=== PATIENT | male | born 1965 | race African-American/Black ===

== ENCOUNTER 2016-12-24 00:21 | Emergency (ER) | payer MEDICARE ==
[2016-12-24] MEDS ORDERED: IPRATROPIUM/ALBUTEROL 0.5-2.5 MG/3 ML AMPUL NEB ONE (00:33)
[2016-12-24] MEDS ORDERED: PREDNISONE 20 MG TABLET PO ONE (01:19)
[2016-12-24] MEDS ORDERED: DOXYCYCLINE HYCLATE 100 MG TABLET PO ONE (01:19)
--- NOTE | 2016-12-24 02:20 | ER Document Report ---
[id number] BREATHING Notes: The patient is a 51-year-old male, past medical history asthma, hypertension, sleep apnea with trach, presents with 1 hour of increased shortness of breath and cough. When EMS arrived, he was having trouble breathing and this resolved after his trach was suctioned. He was also given albuterol for wheezing. Patient has not taken his blood pressure medication in several months because he did not want to. He currently denies shortness of breath, fevers, increased drainage from his trach, chest pain, nausea, vomiting or leg swelling. TRAVEL OUTSIDE OF THE [place] IN LAST 30 DAYS: No - Related Data Allergies/Adverse Reactions: No Known Allergies Allergy (Verified 06/12/14 11:41) Past Medical History - General Information source: Patient, Emergency Med Personnel - Social History Smoking Status: Unknown if Ever Smoked Family History: Reviewed & Not Pertinent - Past Medical History Cardiac Medical History: Reports: Hx Congestive Heart Failure, Hx Hypercholesterolemia, Hx Hypertension Pulmonary Medical History: Reports: Hx Asthma Denies: Hx Tuberculosis Endocrine Medical History: Reports: Hx Diabetes Mellitus Type 2 - no medication - Immunizations Hx Diphtheria, Pertussis, Tetanus Vaccination: No - UNK Hx Pneumococcal Vaccination: 05/03/14 Review of Systems - Review of Systems Notes: REVIEW OF SYSTEMS: CONSTITUTIONAL: -fevers, -chills EENT: -eye pain, -difficulty swallowing, -nasal congestion CARDIOVASCULAR: -chest pain, -syncope. RESPIRATORY: +cough, +SOB GASTROINTESTINAL: -abdominal pain, -nausea, -vomiting, -diarrhea GENITOURINARY: -dysuria, -hematuria MUSCULOSKELETAL: -back pain, -neck pain SKIN: -rash or skin lesions. HEMATOLOGIC: -easy bruising or bleeding. LYMPHATIC: -swollen, enlarged glands. NEUROLOGICAL: -altered mental status or loss of consciousness, -headache, - neurologic symptoms PSYCHIATRIC: -anxiety, -depression. ALL OTHER SYSTEMS REVIEWED AND NEGATIVE. Physical Exam - Vital signs Vitals: BP 187/83 H 12/24/16 00:43 - Notes Notes: PHYSICAL EXAMINATION: GENERAL: Well-appearing, well-nourished and in no acute distress. HEAD: Atraumatic, normocephalic. EYES: Pupils equal round and reactive to light, extraocular movements intact, sclera anicteric, conjunctiva are normal. ENT: nares patent, oropharynx clear without exudates. Moist mucous membranes. NECK: Normal range of motion, supple without lymphadenopathy, Old trach with yellow drainage around trach collar LUNGS: Mild wheezing. No respiratory distress. HEART: Regular rate and rhythm without murmurs ABDOMEN: Soft, nontender, normoactive bowel sounds. No guarding, no rebound. No masses appreciated. EXTREMITIES: Normal range of motion, no pitting or edema. No cyanosis. NEUROLOGICAL: Cranial nerves grossly intact. Normal speech, normal gait. Normal sensory, motor, and reflex exams. PSYCH: Normal mood, normal affect. SKIN: Warm, Dry, normal turgor, no rashes or lesions noted. Course - Re-evaluation Re-evalutation: Patient presents with shortness of breath and wheezing that improved after suctioning of trach and DuoNeb. Patient in no respiratory distress. Trach changed. Will send home with steroids and follow-up at ENT. Will also restart his home amlodipine due to his hypertension. Patient already has enough albuterol at home. Given strict return precautions and he understands. - Vital Signs Vital signs: Temp Pulse Resp BP Pulse Ox 27 H 197/91 H 100 12/24/16 04:01 12/24/16 04:01 12/24/16 03:00 Discharge - Discharge Clinical Impression: Asthma exacerbation Pneumonia Qualifiers: Pneumonia type: due to unspecified organism Laterality: unspecified laterality Lung location: unspecified part of lung Qualified Code(s): J18.9 - Pneumonia, unspecified organism Hypertension Qualifiers: Hypertension type: unspecified secondary hypertension Qualified Code(s): I15.9 - Secondary hypertension, unspecified Condition: Good Disposition: HOME, SELF-CARE Additional Instructions: Your trach was changed today. Take the full course of antibiotics. PNEUMONIA: Your examination indicates that you have pneumonia. This is an infection of the lung tissue, usually caused by bacteria or a virus. Symptoms include cough, fever, shaking chills, chest pain, shortness of breath, and coughing up bloody sputum. Treatment for bacterial pneumonia includes rest, antibiotics for 10 to 14 days, increasing your clear liquid intake, a cool mist humidifier at your bedside, and fever medication. Often, a repeat chest X-ray is performed in a few weeks--even if you feel better--to ascertain whether the infection has completely resolved and no underlying lung problem is present. You should call the physician if you develop persistent vomiting, high fever that does not respond to fever medication, increasing shortness of breath , confusion, or lethargy. Also, failure to improve within two to three days is an indication for re-examination. ANTIBIOTIC THERAPY: You have been given an antibiotic prescription. It's important that you take all the medication, unless instructed otherwise by your physician. Failure to complete the entire course can result in relapse of your condition. Common side effects of antibiotics include nausea, intestinal cramping, or diarrhea. Women may develop vaginal yeast infections, and babies can get yeast (thrush) in the mouth following the use of antibiotics. Contact your physician if you develop significant side effects from this medication. Allergy to this antibiotic can result in hives, wheezing, faintness, or itching. If symptoms of allergy occur, stop the medication and call the doctor. DOXYCYCLINE: Doxycycline (Vibramycin, Doryx) is an antibiotic of the tetracycline family. This type of drug is useful for infections of the respiratory tract and genital tract, and is sometimes used for intestinal infections. Unlike most tetracyclines, doxycycline can be taken with food. It is longer acting, and (usually) less prone to side effects than regular tetracycline. Tetracycline antibiotics can stain immature teeth and SHOULD NOT BE TAKEN BY CHILDREN, NURSING MOTHERS, OR WOMEN. Tetracyclines can make you more prone to sunburn. Abdominal cramping, nausea, and diarrhea are occasional side effects. Women may experience vaginal yeast infections. Call the doctor at once if you develop hives, itching, shortness of breath , or lightheadedness. USE OF ACETAMINOPHEN (Tylenol): Acetaminophen may be taken for pain relief or fever control. It's much safer than aspirin, offering a wider range of "safe" dosages. It is safe during . Some brand names are Tylenol, Panadol, Datril, Anacin 3, Tempra, and Liquiprin. Acetaminophen can be repeated every four hours. The following are maximum recommended dosages: WEIGHT Dose Drops Elixir Chewable( 80mg) (LBS.) drprs=droppers tsp=teaspoon 6 40 mg 0.4 ml (1/2) 6-11 80 mg 0.8 ml (full) tsp 1 tab 12-16 120 mg 1 1/2 drprs 3/4 tsp 1 1/2 tabs 17-23 160 mg 2 drprs 1 tsp 2 tabs 24-30 240 mg 3 drprs 1 1/2 tsp 3 tabs 30-35 320 mg 2 tsp 4 tabs 36-41 360 mg 2 1/4 tsp 4 1/2 tabs 42-47 400 mg 2 1/2 tsp 5 tabs 48-53 480 mg 3 tsp 6 tabs 54-59 520 mg 3 1/4 tsp 6 1/2 tabs 60-64 560 mg 3 1/2 tsp 7 tabs 65-70 600 mg 3 3/4 tsp 7 1/2 tabs 71-76 640 mg 4 tsp 8 tabs 77-82 720 mg 4 1/2 tsp 9 tabs 83-88 800 mg 5 tsp 10 tabs >89 pounds or adults 650 mg to 900 mg Acetaminophen can be repeated every four hours. Maximum dose not to exceed 4000 mg a day. These maximum recommended dosages are slightly higher than the dosages written on the product container, but these dosages are very safe and below the toxic dosage for acetaminophen. FOLLOW-UP CARE: If you have been referred to a physician for follow-up care, call the physician s office for an appointment as you were instructed or within the next two days. If you experience worsening or a significant change in your symptoms, notify the physician immediately or return to the Emergency Department at any time for re-evaluation. ASTHMA: You have been diagnosed as having asthma. This is a condition where there is episodic tightness in the bronchial tubes. Allergies, infections, and polluted or cold air may be contributing factors. Emergency treatment of a severe asthma attack may include adrenaline shots , or bronchodilator aerosol. You may feel lightheaded, have a decreased exercise tolerance and a rapid pulse for an hour or two. Rest and get plenty of fluids. Home treatment of asthma requires bronchodilator drugs. These can be administered by injection, inhalation, or by mouth. Antibiotics and corticosteroids may be required for some patients. You should avoid chemical fumes, dusts, pollens, and exercising in very cold or dry air. If you smoke, stop!! If you develop a fever, increased wheezing, chest pain, or severe shortness of breath, you should contact the doctor immediately. STEROID MEDICATION: You have been given an injection of or oral medicine of the cortisone/ steroid class. This medication is used to control inflammation or allergy. Akash t is usually only given for a short period of time, until the acute process subsides. There are usually no side effects from short-term use of cortisone-like medications. Some persons feel an increased sense of well-being and are not sleepy at bedtime. Long-term use of cortisone medications is best avoided, unless required for a severe condition. If your condition does not remit, or relapses after the course of corticosteroid medication, you should consult your physician. INHALED BRONCHODILATORS: You have received treatment(s) of and/or prescription for an inhaled bronchodilator -- a medication which stimulates the airways in the lung to dilate. This improves the flow of air in asthma, bronchitis, and emphysema. These medicines have some similarity to adrenaline, and can cause similar side effects: shakiness, racing heart, and a sense of nervousness. These side effects decrease with time. Contact your doctor if these side effects are severe. Do not over-use the medicine. Too-frequent use of the inhaler may make it ineffective. Call your doctor if the inhaler is not controlling your symptoms at the prescribed doses. SMOKING: If you smoke, you should stop smoking. The tar and chemicals in cigarette smoke are harmful. Smoking has been shown to cause: emphysema chronic bronchitis lung cancer mouth and throat cancer stomach and pancreas cancer premature aging defects In addition, smoking increases ear and lung infections in children of smokers. FOLLOW-UP CARE: If you have been referred to a physician for follow-up care, call the physician s office for an appointment as you were instructed or within the next two days. If you experience worsening or a significant change in your symptoms, notify the physician immediately or return to the Emergency Department at any time for re-evaluation. Prescriptions: Amlodipine Besylate 5 mg PO DAILY #30 tab Doxycycline Hyclate 100 mg PO BID #14 capsule Prednisone [Deltasone 20 mg Tablet] 3 tab PO DAILY 5 Days
[2016-12-24 04:13] VITALS: BP 197/91
== END 2016-12-24 04:30 | disposition home or self-care (01) ==
LOC: ER 00:21
DX: J45.901 Unspecified asthma with (acute) exacerbation (principal); J18.9 Pneumonia, unspecified organism; R06.00 Dyspnea, unspecified; I11.0 Hypertensive heart disease with heart failure; I50.9 Heart failure, unspecified; Z93.0 Tracheostomy status
CPT/HCPCS: 94640; 99285; 71010; A9270 ×3; J7512; J7620

== ENCOUNTER 2016-12-25 13:02 | Observation (INO) | payer MEDICARE ==
--- NOTE | 2016-12-25 13:23 | ER Document Report ---
ED Medical Screen (RME) - General Chief Complaint: Breathing Difficulty Stated Complaint: DIFFICULTY BREATHING Mode of Arrival: Wheelchair Information source: Patient Notes: 51-year-old male presents to the emergency department sent by 3rd mate for trach replacement. Patient reports trach fell out last night. I have greeted and performed a rapid initial assessment of this patient. A comprehensive ED assessment and evaluation of the patient, analysis of test results and completion of the medical decision making process will be conducted by additional ED providers. TRAVEL OUTSIDE OF THE [place] IN LAST 30 DAYS: No - Related Data Allergies/Adverse Reactions: No Known Allergies Allergy (Verified 12/25/16 13:11) Past Medical History - Social History Chew tobacco use (# tins/day): No Frequency of alcohol use: None Drug Abuse: None - Past Medical History Cardiac Medical History: Reports: Hx Congestive Heart Failure, Hx Hypercholesterolemia, Hx Hypertension Pulmonary Medical History: Reports: Hx Asthma Denies: Hx Tuberculosis Endocrine Medical History: Reports: Hx Diabetes Mellitus Type 2 - no medication Renal/ Medical History: Denies: Hx Peritoneal Dialysis - Immunizations Hx Diphtheria, Pertussis, Tetanus Vaccination: No - UNK Physical Exam - Vital signs Vitals: Temp Pulse Resp BP Pulse Ox 98.1 F 79 24 H 227/103 H 96 12/25/16 13:11 12/25/16 13:11 12/25/16 13:11 12/25/16 13:11 12/25/16 13:11 Interpretation: Hypertensive - Reports was given prescription for antihypertensive this morning but has not taken his medication - General General appearance: Appears well, Alert In distress: None - Respiratory Respiratory status: No respiratory distress - Able to speak in full sentences Course - Vital Signs Vital signs: Temp Pulse Resp BP Pulse Ox 98.1 F 79 24 H 227/103 H 96 12/25/16 13:11 12/25/16 13:11 12/25/16 13:11 12/25/16 13:11 12/25/16 13:11
--- NOTE | 2016-12-25 15:08 | ER Document Report ---
[id number] DIFFICULTY BREATHING Mode of Arrival: Wheelchair Notes: The patient is a 51-year-old male, past medical history hypertension (does not take his meds), sleep apnea with trach since 1989, presents requesting a new trach after his trach fell out 16 hours ago when he placed his BiPap on. His trach is a size 8 and it was changed 2 nights ago by myself after he had heavy secretions from the trach. He denies cough, fevers, shortness of breath, nausea , vomiting or bloody secretions. TRAVEL OUTSIDE OF THE [place] IN LAST 30 DAYS: No - Related Data Allergies/Adverse Reactions: No Known Allergies Allergy (Verified 12/25/16 13:11) Past Medical History - General Information source: Patient - Social History Smoking Status: Never Smoker Chew tobacco use (# tins/day): No Frequency of alcohol use: None Drug Abuse: None Family History: Reviewed & Not Pertinent Patient has suicidal ideation: No Patient has homicidal ideation: No - Past Medical History Cardiac Medical History: Reports: Hx Congestive Heart Failure, Hx Hypercholesterolemia, Hx Hypertension Pulmonary Medical History: Reports: Hx Asthma Denies: Hx Tuberculosis Endocrine Medical History: Reports: Hx Diabetes Mellitus Type 2 - no medication Renal/ Medical History: Denies: Hx Peritoneal Dialysis - Immunizations Hx Diphtheria, Pertussis, Tetanus Vaccination: No - UNK Hx Pneumococcal Vaccination: 05/03/14 Review of Systems - Review of Systems Notes: REVIEW OF SYSTEMS: CONSTITUTIONAL: -fevers, -chills EENT: -eye pain, -difficulty swallowing, -nasal congestion CARDIOVASCULAR:-chest pain, -syncope. RESPIRATORY: -cough, -SOB GASTROINTESTINAL: -abdominal pain, - nausea, -vomiting, -diarrhea GENITOURINARY: -dysuria, -hematuria MUSCULOSKELETAL: -back pain, -neck pain SKIN: -rash or skin lesions. HEMATOLOGIC: -easy bruising or bleeding. LYMPHATIC: -swollen, enlarged glands. NEUROLOGICAL: -altered mental status or loss of consciousness, -headache, - neurologic symptoms PSYCHIATRIC: -anxiety, -depression. ALL OTHER SYSTEMS REVIEWED AND NEGATIVE. Physical Exam - Vital signs Vitals: Temp Pulse Resp BP Pulse Ox 98.1 F 79 24 H 227/103 H 96 12/25/16 13:11 12/25/16 13:11 12/25/16 13:11 12/25/16 13:11 12/25/16 13:11 - Notes Notes: PHYSICAL EXAMINATION: GENERAL: Well-appearing, well-nourished and in no acute distress. HEAD: Atraumatic, normocephalic. EYES: Pupils equal round and reactive to light, extraocular movements intact, sclera anicteric, conjunctiva are normal. ENT: nares patent, oropharynx clear without exudates. Moist mucous membranes. NECK: Patent tracheotomy without bleeding or heavy secretions. Normal range of motion, supple without lymphadenopathy LUNGS: Breath sounds clear to auscultation bilaterally and equal. No wheezes rales or rhonchi. HEART: Regular rate and rhythm without murmurs ABDOMEN: Soft, nontender, normoactive bowel sounds. No guarding, no rebound. No masses appreciated. EXTREMITIES: Normal range of motion, no pitting or edema. No cyanosis. NEUROLOGICAL: Cranial nerves grossly intact. Normal speech, normal gait. Normal sensory, motor, and reflex exams. PSYCH: Normal mood, normal affect. SKIN: Warm, Dry, normal turgor, no rashes or lesions noted. Course - Re-evaluation Re-evalutation: Attempted to place a size 8 uncuffed trach, but was unsuccessful. Attempted to place a size 6 uncuffed trach without success. Suspect stenosis or narrowing from trach being out of the stoma for 18 hours. Placed call to Dr. Faulkner at 15:05 to help with dilation of stoma. He is in surgery at this time. To help prevent it from further closing, placed inside part of size 8 trach. Patient in no respiratory distress at this time. 12/25/16 16:45. Dr. Faulkner in ED and is unable to place trach at bedside. Will admit patient to the OR for placement of trach under anesthesia. Requesting IV antihypertensive medications to help with elevated blood pressure. - Vital Signs Vital signs: Temp Pulse Resp BP Pulse Ox 98.1 F 75 20 170/70 H 100 12/25/16 18:36 12/25/16 19:06 12/25/16 19:06 12/25/16 19:06 12/25/16 19:06 - Laboratory Laboratory results interpreted by me: 12/25/16 17:35 POC Glucose 112 H Discharge - Discharge Clinical Impression: Tracheostomy complication Qualifiers: Tracheostomy complication: unspecified Qualified Code(s): J95.00 - Unspecified tracheostomy complication Hypertension Qualifiers: Hypertension type: unspecified secondary hypertension Qualified Code(s): I15.9 - Secondary hypertension, unspecified; I15 - Secondary hypertension Condition: Stable Disposition: SAME DAY SURGERY Admitting Provider: Surgicalmitali Faulkner
[2016-12-25] MEDS ORDERED: LABETALOL HCL INJ 20 MG/4 ML DISP.SYRIN IV ONE (16:55)
[2016-12-25] MEDS ORDERED: DEXMEDETOMIDINE INJ 80 MCG/20 ML VIAL IV ONE (17:41)
[2016-12-25] MEDS ORDERED: MIDAZOLAM 2 MG/2 ML INJ ONE (17:41)
[2016-12-25] MEDS ORDERED: PROPOFOL INJ 200 MG/20 ML VIAL IV ONE (17:41)
[2016-12-25] MEDS ORDERED: LIDOCAINE 2% JELLY 30 ML TUBE ONE (17:59)
[2016-12-25] MEDS ORDERED: LIDOCAINE 1%/EPINEPHRINE INJ 20 ML VIAL ONE (17:59)
[2016-12-25] MEDS ORDERED: DIPHENHYDRAMINE HCL 50 MG/ML VIAL IV PRN (18:49)
[2016-12-25] MEDS ORDERED: MORPHINE SULFATE 10 MG/ML INJ IV PRN (18:49)
[2016-12-25] MEDS ORDERED: OXYCODONE-ACETAMINOPHEN 5-325 MG TABLET PO PRN ×2 (18:49)
[2016-12-25] MEDS ORDERED: FENTANYL CITRATE INJ/PF 100 MCG/2 ML AMPUL IV PRN ×3 (18:49)
[2016-12-25] MEDS ORDERED: PROMETHAZINE HCL INJ 25 MG/1 ML VIAL IV PRN ×2 (18:49)
[2016-12-25] MEDS ORDERED: MEPERIDINE HCL/PF INJ 25 MG/1 ML DISP.SYRIN IV PRN (18:49)
--- NOTE | 2016-12-25 18:58 | OPERATIVE REPORT E ---
Operative Report NAME: NUNO JAMES : 1965 AGE: 51Y DATE OF SURGERY: 12/25/2016 ROOM: ED08 PREOPERATIVE DIAGNOSIS: DISPLACED PERMANENT TRACHEOSTOMY TUBE. POSTOPERATIVE DIAGNOSIS: DISPLACED PERMANENT TRACHEOSTOMY TUBE. OPERATION: 1. Flexible bronchoscopy. 2. Replacement of tracheostomy tube with 8, cuffless fenestrated trach tube. SURGEON: SREE MARINO M.D. ANESTHESIA: LMAC. COMPLICATIONS: None. ESTIMATED BLOOD LOSS: None. DRAINS: None. TISSUE REMOVED OR ALTERED: None. COMPLICATIONS: None. PROCEDURE: The patient was brought from the emergency department down to the holding area and then to the operating room, where IV LMAC anesthesia was induced. Surgical plan and surgical time-out were conducted. The patient was placed in a semirecumbent position and head extended at the cervical level. Flexible endoscopy was performed through the existing inner cannula from an 8 inner diameter Shiley tracheostomy tube. This revealed the trachea to be in good shape and the tom was visualized and this was normal. We did back out the inner cannula so that I could visualize the permanent stoma and it appeared to be without evidence of malignancy or hypertrophic granulation tissue. I then removed the inner cannula and inserted a 6 Shiley tracheostomy tube with the obturator. We left this in position for several minutes after removing the obturator. The patient maintained good saturations. The #6 tracheostomy tube was removed and we exchanged that one with an 8 inner diameter fenestrated, noncuffed tube. This did require a fair amount of force to overcome resistance at the mid level of the permanent trach canal. However, once it gave into position, we were able to ventilate the patient fine. There was no bleeding and the inner cannula was then provided into position. A humidified ventilated mask was attached to the tracheostomy site. The patient tolerated the procedure well, taken to the recovery room in stable condition. DICTATING PHYSICIAN: SREE MARINO M.D. [id number] PHY#: [id number] ID: [id number] JOB#: [id number] ACCT: [id number] cc:SREE MARINO M.D. >
[2016-12-25] MEDS ORDERED: DEXTROSE 50%-WATER 25 GM/50 ML DISP.SYRIN IV PRN ×2 (21:36)
[2016-12-25] MEDS ORDERED: GLUCAGON,HUMAN RECOMB 1 MG INJ IM PRN (21:36)
[2016-12-25] MEDS ORDERED: DEXTROSE 40% GEL 15 GM TUBE PO PRN ×2 (21:36)
[2016-12-25] MEDS ORDERED: INSULIN REG, HUMAN 100 UNIT/ML 3 ML VIAL (PYX) SUBCUT PRN (21:36)
--- NOTE | 2016-12-25 22:08 | HISTORY AND PHYSICAL E ---
History and Physical NAME: NUNO JAMES : 1965 AGE: 51Y ADMITTED: 12/25/2016 ROOM: 528 CHIEF COMPLAINT: Dislodged tracheostomy. HISTORY OF PRESENT ILLNESS: The patient is a 51-year-old -Greek male with a history of morbid obesity. He is brought by ground rescue to [facility] Emergency Department because his #8 Shiley tracheostomy tube, uncuffed, fenestrated, became dislodged. This was approximately 12 hours ago. The patient spent the better part of the day in the emergency department undergoing multiple times at tracheostomy tube reinsertion. Unfortunately, these efforts were unsuccessful including efforts by Dr. Faulkner at bedside. Therefore, the patient is admitted for observation to be taken to the operating room for operative insertion of tracheostomy tube under controlled circumstances. PAST MEDICAL/SURGICAL HISTORY: Can be found in his permanent record. This includes: 1. Hypertension. 2. Morbid obesity. 3. Sleep apnea. 4. History of hypertension. 5. Congestive heart failure. 6. Asthma. 7. Type II diabetes. PAST SURGICAL HISTORY: Permanent tracheostomy for morbid obesity. LOCAL MEDICAL DOCTOR: Not reported. IMMUNIZATIONS: Unknown. REVIEW OF SYSTEMS: GASTROINTESTINAL: Patient denies gastrointestinal problems. RESPIRATORY: chronic ronchi. PHYSICAL EXAMINATION: GENERAL: The patient's examined in the emergency department, room 9. Patient is in mild distress. He follows commands. VITAL SIGNS: Stable. PSYCHIATRIC: Alert and oriented x4. NEUROLOGIC: Grossly intact in the upper and lower extremities, although gait was not assessed. EYES: Without icterus. NECK: No adenopathy. There is a permanent tracheostomy site without bleeding; there are some secretions. No evidence of cellulitis or stenosis. LUNGS: Rhonchi bilaterally. ABDOMEN: Soft. The remainder of the examination is unremarkable. LABORATORY PROFILE: Blood sugar 112. IMPRESSION: 1. DISLODGED TRACHEOSTOMY TUBE. 2. HISTORY OF MORBID OBESITY. 3. HYPERTENSION. RECOMMENDATIONS: The patient will be brought into the hospital, taken to the operating room under controlled conditions with sedation, to undergo flexible bronchoscopy, with subsequent tracheostomy replacement. Patient agrees to proceed. DICTATING PHYSICIAN: RSEE FAULKNER M.D. [id number] PHY#: [id number] ID: [id number] JOB#: [id number] ACCT: [id number] cc:Sameer BARNARD MD
[2016-12-25] MEDS: CLONIDINE HCL 0.2 MG TABLET PO SCH (22:43)
[2016-12-26] MEDS ORDERED: INFLUENZA ADLT QUAD (36MOS+) 2016-17 VAC 0.5 ML SYR IM PRN (01:48)
--- NOTE | 2016-12-26 08:28 | DISCHARGE SUMMARY E ---
Discharge Summary NAME: NUNO JAMES : 1965 AGE: 51Y ADMITTED: 12/25/2016 DISCHARGED: 12/26/2016 FINAL DIAGNOSIS: ADMISSION DIAGNOSES: 1. History of chronic obstructive pulmonary disease. 2. History of respiratory failure. HOSPITAL COURSE: A 51-year-old who has a chronic tracheostomy, and he had a problem with the tracheostomy tube. The plug needed to be changed. He came with respiratory distress to hospital, admitted by Dr. Faulkner, and then in the operating room underwent change of tracheostomy tube under monitoring. Today he is feeling better, comfortable. PEG tube is working well, in place, and is hemodynamically stable with good oxygenation with saturation more than 92% to 94%. We will be discharging him and he will follow up with primary care and surgical service as needed. DICTATING PHYSICIAN: VIET SMITH M.D. [id number] PHY#: [id number] ID: [id number] JOB#: [id number] ACCT: [id number] cc:Devyn HUMPHREY SANKAR M.D. >
[2016-12-26 08:41] VITALS: BP 153/83
[2016-12-26] MEDS: CLONIDINE HCL 0.2 MG TABLET PO SCH (10:25)
== END 2016-12-26 12:00 | disposition home health service (06) ==
LOC: ER 13:02 → EH 17:41 → UNDOADMOB 17:41 → EH 18:42 → 5 20:36
PROC: 3E033GC Introduction of Other Therapeutic Substance into Peripheral Vein, Percutaneous Approach (ICD-10-PCS; 2016-12-25)
PROC: 0BJ08ZZ Inspection of Tracheobronchial Tree, Via Natural or Artificial Opening Endoscopic (ICD-10-PCS; 2016-12-25)
PROC: 3E0234Z Introduction of Serum, Toxoid and Vaccine into Muscle, Percutaneous Approach (ICD-10-PCS; 2016-12-25)
PROC: 0B21XFZ Change Tracheostomy Device in Trachea, External Approach (ICD-10-PCS; principal; 2016-12-25 18:00)
DX: J95.03 Malfunction of tracheostomy stoma (principal); R06.00 Dyspnea, unspecified; J44.9 Chronic obstructive pulmonary disease, unspecified; E66.01 Morbid (severe) obesity due to excess calories; I11.0 Hypertensive heart disease with heart failure; I50.9 Heart failure, unspecified; G47.30 Sleep apnea, unspecified; J45.909 Unspecified asthma, uncomplicated; E11.9 Type 2 diabetes mellitus without complications; Z23 Encounter for immunization
CPT/HCPCS: 99285; 96374; 82962 ×2; 90686; 31502; 31622; 90471; G0378 ×3; J2250; A9270 ×2; J3490 ×2; J2704; 320

== ENCOUNTER 2016-12-28 18:57 | Emergency (ER) | payer MEDICARE ==
[2016-12-28] MEDS ORDERED: ALBUTEROL SULFATE 0.083% NEB 2.5 MG/3 ML AMPUL NEB ONE ×2 (19:16→23:14)
[2016-12-28] MEDS ORDERED: METHYLPREDNISOLONE INJ 125 MG/2 ML SDV IV ONE (19:16)
[2016-12-28] MEDS ORDERED: IPRATROPIUM/ALBUTEROL 0.5-2.5 MG/3 ML AMPUL NEB ONE (19:16)
--- NOTE | 2016-12-28 19:21 | ER Document Report ---
ED Respiratory Problem - General Stated Complaint: DIFFICULTY BREATHING Time seen by provider: 19:17 Mode of Arrival: Stretcher Information source: Patient - HPI Patient complains to provider of: Cough, Short of breath Onset: This morning Duration: Continuous, Worse/persistent Quality of pain: No pain Short of Breath: Moderate Chest pain/discomfort: Tightness Cough: Productive Sputum amount: Small Sputum color: Yellow Sputum consistency: Mucoid Associated symptoms: Congestion, Cough, Difficulty breathing, Short of breath Similar symptoms previously: Yes Recently seen / treated by doctor: No Notes: Patient is a 51-year-old person who presents to the emergency room via EMS for difficulty breathing, he was also noted to have an elevated blood pressure of 220 systolic when EMS arrived, he reports a cough productive of yellowish phlegm , he reports a subjective fever, denies any chest pain, patient has a tracheostomy tube in place, states it's been there since 1994 and is related to obstructive sleep apnea, he does not use oxygen at home at present time - Related Data Allergies/Adverse Reactions: No Known Allergies Allergy (Unverified 12/28/16 23:59) Home Medications: Current Home Medications Amlodipine Besylate 5 mg PO DAILY 12/29/16 [History] Doxycycline Hyclate 100 mg PO BID 12/29/16 [History] Prednisone 60 mg PO DAILY 12/29/16 [History] Past Medical History - General Information source: Patient - Social History Smoking Status: Unknown if Ever Smoked Family History: Reviewed & Not Pertinent Review of Systems - Review of Systems Constitutional: No symptoms reported EENT: No symptoms reported Cardiovascular: No symptoms reported Respiratory: See HPI Gastrointestinal: No symptoms reported Genitourinary: No symptoms reported Male Genitourinary: No symptoms reported Musculoskeletal: No symptoms reported Skin: No symptoms reported Hematologic/Lymphatic: No symptoms reported Neurological/Psychological: No symptoms reported -: Yes All other systems reviewed and negative Physical Exam - Vital signs Vitals: Temp Pulse Resp BP Pulse Ox 98.2 F 78 21 209/97 94 12/28/16 19:02 12/28/16 19:02 12/28/16 19:02 12/28/16 19:02 12/28/16 19:02 Interpretation: Normal - General General appearance: Appears well, Alert - HEENT Head: Normocephalic, Atraumatic Eyes: Normal Conjunctiva: Normal Extraocular movements intact: Yes Eyelashes: Normal Pupils: PERRL Neck: Other - Tracheostomy tube in place, small amount of yellowish colored phlegm coming to - Respiratory Respiratory status: No respiratory distress Chest status: Nontender Breath sounds: Productive cough, Rhonchi, Wheezing Chest palpation: Normal - Cardiovascular Rhythm: Regular Heart sounds: Normal auscultation Murmur: No - Abdominal Inspection: Normal Distension: No distension Bowel sounds: Normal Tenderness: Nontender Organomegaly: No organomegaly - Back Back: Normal, Nontender - Extremities General upper extremity: Normal inspection, Nontender, Normal color, Normal ROM , Normal temperature General lower extremity: Nontender, Normal color, Normal temperature. No: Lorena 's sign Foot: Edema, Other - Chronic appearing discoloration consistent with peripheral vascular disease - Neurological Neuro grossly intact: Yes Cognition: Normal Orientation: AAOx4 Culver Coma Scale Eye Opening: Spontaneous Culver Coma Scale Verbal: Oriented Culver Coma Scale Motor: Obeys Commands Culver Coma Scale Total: 15 Speech: Normal Motor strength normal: LUE, RUE, LLE, RLE Sensory: Normal - Psychological Associated symptoms: Normal affect, Normal mood - Skin Skin Temperature: Warm Skin Moisture: Dry Skin Color: Normal Course - Re-evaluation Re-evalutation: 12/29/16 01:19 Requested dissolver operator to [facility] optometry assistant, Dr. Montero 12/29/16 03:35 Nursing supervisor framing mill reports there are no admitted bed to perform dialysis and, I do not currently have a optometry assistant on-call, however it has been at least 3 years since he has seen this optometry assistant, therefore I will attempt to make arrangements to transfer patient to a tertiary care center 12/29/16 03:51 Patient was discussed with hospitalist at [facility], Dr. Montano, who accepts patient for transfer, unfortunately there are no available beds at the present time so he will be placed on a wait list 12/29/16 03:56 A call was placed to [facility], patient transfer center, discussed with Aide, requested callback for possible transfer 12/29/16 04:49 Patient was discussed with Dr. Thompson, hospitalist at [facility] who accepts patient for transfer, transfer center reports that there should be open bed in the ICU at this point in time, awaiting callback with bed assignment 02/27/17 05:32 Patient has been given a bed assignment at [facility], awaiting transportation arrangements at this point in time, patient's blood pressure has decreased slightly since being started on a Cardene drip, his vital signs are otherwise stable, he is awake, alert and oriented, in no acute distress at this point in time, stable for transport once available - Vital Signs Vital signs: Temp Pulse Resp BP Pulse Ox 98.2 F 78 26 H 183/91 H 100 12/28/16 19:02 12/28/16 19:02 12/29/16 05:02 12/29/16 05:22 12/29/16 04:01 - Laboratory Result Diagrams: 12/28/16 23:26 12/28/16 23:26 Laboratory results interpreted by me: 12/28/16 12/28/16 12/28/16 23:26 23:26 23:26 RBC 2.94 L Hgb 7.9 L Hct 24.7 L MCH 26.7 L MCHC 31.9 L RDW 15.9 H Seg Neutrophils % 89.7 H Lymphocytes % 6.2 L VBG pH VBG pCO2 VBG HCO3 Potassium 6.1 H* Chloride 109 H Carbon Dioxide 14 L BUN 87 H Creatinine 11.63 H Est GFR ( Amer) 6 L Est GFR (Non-Af Amer) 5 L Glucose 121 H Calcium 6.9 L* AST 9 L ALT 19 L Creatine Kinase 374 H NT-Pro-B Natriuret Pep 8160 H Albumin 3.4 L Crossmatch 12/28/16 12/29/16 23:26 01:37 RBC Hgb Hct MCH MCHC RDW Seg Neutrophils % Lymphocytes % VBG pH 7.22 L VBG pCO2 32.8 L VBG HCO3 13.2 L Potassium Chloride Carbon Dioxide BUN Creatinine Est GFR ( Amer) Est GFR (Non-Af Amer) Glucose Calcium AST ALT Creatine Kinase NT-Pro-B Natriuret Pep Albumin Crossmatch See Detail - Diagnostic Test Radiology reviewed: Image reviewed, Reports reviewed - EKG Interpretation by Me EKG shows normal: Sinus rhythm Rate: Normal Rhythm: NSR Heart block present: 1st Degree Procedures - Additional Procedures IV insertion Time performed: 21:45 Additional Procedures: IV insertion Notes: 12/28/16 21:45 20-gauge IV catheter placed in right antecubital space using ultrasound guidance 12/29/16 01:37 20-gauge IV catheter placed in the left antecubital space using ultrasound guidance Critical Care Note - Critical Care Note Total time excluding time spent on procedures (mins): 60 Comments: Patient with hyperkalemia, acute renal failure, requiring transfer to tertiary [facility] center for emergent dialysis, time spent caring for patient, discussing with consultants and tertiary care centers arranging for transfer Discharge - Discharge Clinical Impression: Hyperkalemia Anemia Qualifiers: Anemia type: unspecified type Qualified Code(s): D64.9 - Anemia, unspecified Chronic kidney disease Qualifiers: Chronic kidney disease stage: unspecified stage Qualified Code(s): N18.9 - Chronic kidney disease, unspecified Hypertension Qualifiers: Hypertension type: essential hypertension Qualified Code(s): I10 - Essential ( primary) hypertension Condition: Serious Disposition: [facility]
[2016-12-28] MEDS ORDERED: PREDNISONE 20 MG TABLET PO ONE (21:06)
[2016-12-28 23:43] LABS: VENOUS BLOOD BASE EXCESS -13.4 mmol/L; VENOUS BLOOD HCO3 13.2 mmol/L (20-32); VENOUS BLOOD PCO2 32.8 mmHg (35-63); VENOUS BLOOD PH 7.22 (7.30-7.42)
[2016-12-28 23:45] LABS: ABSOLUTE LYMPHOCYTES (AUTO) 0.6 10^3/uL (0.5-4.7); ABSOLUTE MONOCYTES (AUTO) 0.3 10^3/uL (0.1-1.4); ABSOLUTE NEUT (AUTO) 8.1 10^3/uL (1.7-8.2); BASOPHILS % (AUTO) 0.2 % (0-2); HEMATOCRIT 24.7 % (37.9-51.0); LYMPHOCYTES % (AUTO) 6.2 % (13-45); MEAN CORPUSCULAR HEMOGLOBIN 26.7 pg (27.0-33.4); MEAN CORPUSCULAR HGB CONC 31.9 g/dL (32.0-36.0); MEAN CORPUSCULAR VOLUME 84 fl (80-97); MONOCYTES % (AUTO) 3.9 % (3-13); RED BLOOD COUNT 2.94 10^6/uL (4.35-5.55); RED CELL DISTRIBUTION WIDTH 15.9 % (11.5-14.0); SEGMENTED NEUTROPHILS % (AUTO) 89.7 % (42-78)
[2016-12-28 23:48] LABS: HEMOGLOBIN 7.9 g/dL (13.5-17.0)
[2016-12-29 00:09] LABS: CREATINE KINASE MB 3.66 ng/mL (<4.55)
[2016-12-29] MEDS ORDERED: NORMAL SALINE 250 ML IV PRN (00:10)
[2016-12-29] MEDS ORDERED: CEFTRIAXONE INJ 1000 MG VIAL IV ONE (00:12)
[2016-12-29 00:15] LABS: ALANINE AMINOTRANSFERASE 19 U/L (21-72); ALBUMIN 3.4 g/dL (3.5-5.0); ALKALINE PHOSPHATASE 63 U/L (38-126); ANION GAP 15 (5-19); ASPARTATE AMINO TRANSFERASE 9 U/L (17-59); BILIRUBIN,TOTAL 0.5 mg/dL (0.2-1.3); BLOOD UREA NITROGEN 87 mg/dL (7-20); CARBON DIOXIDE 14 mmol/L (22-30); CHLORIDE 109 mmol/L (98-107); CREATINE KINASE 374 U/L (55-170); CREATININE RESULT 11.63 mg/dL (0.52-1.25); GLUCOSE 121 mg/dL (75-110); SODIUM 138.3 mmol/L (137-145); TOTAL PROTEIN 6.3 g/dL (6.3-8.2)
[2016-12-29 00:26] LABS: CALCIUM 6.9 mg/dL (8.4-10.2); POTASSIUM 6.1 mmol/L (3.6-5.0)
[2016-12-29 00:27] LABS: TROPONIN I 0.197 ng/mL
[2016-12-29] MEDS ORDERED: SODIUM POLYSTYRENE SULFONATE 15 GM/60 ML PO ONE (00:29)
[2016-12-29] MEDS ORDERED: CALCIUM GLUCONATE 1000 MG/10 ML INJ IV ONE ×2 (00:29→01:49)
[2016-12-29] MEDS ORDERED: DEXTROSE 50%-WATER 25 GM/50 ML DISP.SYRIN IV ONE (00:29)
[2016-12-29] MEDS ORDERED: INSULIN REG, HUMAN 100 UNIT/ML 3 ML VIAL (PYX) IV ONE (00:29)
[2016-12-29] MEDS ORDERED: NORMAL SALINE 1000 ML 1,000 ML IV PRN (01:48)
[2016-12-29] MEDS ORDERED: ALBUTEROL SULFATE 0.083% NEB 2.5 MG/3 ML AMPUL NEB ONE (02:15)
[2016-12-29] MEDS ORDERED: CLONIDINE HCL 0.2 MG TABLET PO ONE ×2 (02:54→07:53)
[2016-12-29] MEDS ORDERED: NICARDIPINE 20 MG/200 ML PREMIX BAG IV ONE (04:00)
[2016-12-29] MEDS ORDERED: DEXTROSE 5%-WATER 1000 ML 1,000 ML with SODIUM BICARBONATE 100 MEQ IV PRN ×2 (04:52)
[2016-12-29] MEDS ORDERED: SODIUM BICARBONATE 8.4% INJ 50 MEQ/50 ML DISP.SYRIN ONE (05:09)
[2016-12-29] MEDS ORDERED: NITROGLYCERIN 2% OINTMENT 1 GM PACKET TP ONE (07:53)
--- NOTE | 2016-12-29 08:09 | EKG REPORT ---
SEVERITY:- ABNORMAL ECG - SINUS RHYTHM LVH WITH SECONDARY REPOLARIZATION ABNORMALITY BORDERLINE PROLONGED QT INTERVAL : Confirmed by: Ronald Perez MD 29-Dec-2016 08:07:53
--- NOTE | 2016-12-29 08:09 | EKG REPORT ---
SEVERITY:- ABNORMAL ECG - SINUS RHYTHM FIRST DEGREE AV BLOCK BORDERLINE LEFT AXIS DEVIATION ABNORMAL T, CONSIDER ISCHEMIA, LATERAL LEADS BORDERLINE PROLONGED QT INTERVAL : Confirmed by: Ronald Perez MD 29-Dec-2016 08:08:33
[2016-12-29] MEDS ORDERED: NICARDIPINE HCL RTU, ISO-OS 20 MG/200 ML RTUINJ IV ONE (08:11)
[2016-12-29 08:30] VITALS: BP 185/92
== END 2016-12-29 08:30 | disposition short-term general hospital (02) ==
LOC: ER 18:57 → MERGE 18:57 → EH 12-29 00:16 → UNDOADMIN 12-29 00:16 → ER 12-29 08:30
DX: I12.9 Hypertensive chronic kidney disease with stage 1 through stage 4 chronic kidney disease, or unspecified chronic kidney disease (principal); N18.9 Chronic kidney disease, unspecified; E87.5 Hyperkalemia; D64.9 Anemia, unspecified; R06.02 Shortness of breath; R05 Cough; R50.9 Fever, unspecified; Z79.899 Other long term (current) drug therapy
CPT/HCPCS: 93005 ×2; 94640 ×2; 99291; 96374; 86900; 86901; 36415; 87040; 82553; 86850; 82550; 85025; 80053; 84484; 86920; 82803; 83880; 71010; 93010 ×2; J0610; A9270 ×6; J3490 ×2; J0696; J1815; J2930; J7512; J7620

== ENCOUNTER → 2017-03-19 | Outpatient (CLI) | payer MEDICARE, OTHER | LOC: SD 08:02 | PROVIDERS: ATTEND Internal Medicine Nephrology | DX: I95.9 Hypotension, unspecified (principal) | CPT/HCPCS: 82533 ==

== ENCOUNTER 2017-06-02 14:55 | Day surgery (SDC) | payer MEDICARE ==
[2017-06-02] MEDS ORDERED: NALOXONE HCL INJ/PF 0.4 MG/1 ML SDV ONE (15:52)
[2017-06-02] MEDS ORDERED: FLUMAZENIL INJ 0.5 MG/5 ML VIAL IV ONE (15:53)
[2017-06-02] MEDS ORDERED: GLUCAGON,HUMAN RECOMB 1 MG INJ ONE (15:53)
[2017-06-02] MEDS ORDERED: FENTANYL CITRATE INJ/PF 100 MCG/2 ML AMPUL ONE (15:53)
[2017-06-02] MEDS ORDERED: EPINEPHRINE INJ 1 MG/10 ML DISP.SYRIN ONE (15:53)
[2017-06-02] MEDS: MIDAZOLAM 2 MG/2 ML INJ ONE ×2 (16:10→16:15)
--- NOTE | 2017-06-02 16:39 | Operative Report ---
Operative Report DATE OF SURGERY: 06/02/17 Operative Report: Pre-op diagnosis: Colon cancer screening Post-op diagnosis: 1. Pancolonic diverticulosis 2. polyps in the transverse colon Surgery: Colonoscopy with polypectomy Medications: Versed 3mg, Fentanyl 100mcg IV push Tissue removed: Colon polyps Procedure: After informed consent obtained from patient, conscious sedation was achieved. A digital rectal examination was performed and this was unremarkable. The colonoscope was inserted into the rectum and advanced to the cecum. The appendiceal orifice and the terminal ileum were both identified. The mucosa was examined into details as the colonoscope was slowly pulled out of the patient. The endoscope was retroflexed in the rectum. Patient tolerated the procedure well. Findings Terminal ileum: Normal Cecum: Normal Ascending colon: A few diverticuli Transverse colon: A few diverticuli. Three 5-6mm polyps removed with a hot polypectomy snare Descending colon: A few diverticuli Sigmoid colon: Multiple diverticuli Rectum: Normal except for internal hemorrhoids Plan: Await pathology. Follow-up colonoscopy in 5 years OPERATION: .
[2017-06-02 17:21] VITALS: BP 102/68
--- NOTE | 2017-06-02 18:36 | PDOC DISCHARGE SUMMARY ---
Discharge Summary (SDC) - Discharge Final Diagnosis: Colon polyps and diverticulosis Date of Surgery: 06/02/17 Condition: Stable Forms: Sedation D/C Instructions, Discharge POC-Surgical Service Treatment or Instructions: None Referrals: JANICE BAY MD [ACTIVE STAFF] - Discharge Activity: Activity As Tolerated, Balance Activity w/Rest, No Driving Home Care Assistance: Provided by Family Report the Following to Your Physician Immediately: Shortness of Breath, Increase in Pain, Fever over 101 Degrees, Unusual Bleeding
== END 2017-06-02 17:30 | disposition home or self-care (01) ==
LOC: END 14:55
PROVIDERS: ATTEND Internal Medicine Gastroenterology
PROC: 0DBL8ZX Excision of Transverse Colon, Via Natural or Artificial Opening Endoscopic, Diagnostic (ICD-10-PCS; principal; 2017-06-02 15:30)
DX: Z12.11 Encounter for screening for malignant neoplasm of colon (principal); K57.30 Diverticulosis of large intestine without perforation or abscess without bleeding; D12.3 Benign neoplasm of transverse colon; K64.8 Other hemorrhoids; Z93.0 Tracheostomy status; E66.01 Morbid (severe) obesity due to excess calories; I12.0 Hypertensive chronic kidney disease with stage 5 chronic kidney disease or end stage renal disease; E11.22 Type 2 diabetes mellitus with diabetic chronic kidney disease; N18.6 End stage renal disease; D64.9 Anemia, unspecified; G47.33 Obstructive sleep apnea (adult) (pediatric); Z79.899 Other long term (current) drug therapy; Z68.42 Body mass index [BMI] 45.0-49.9, adult
CPT/HCPCS: 45385; 82962; 88305 ×2; J2250; J0171; J3010; J1610; J2310; J3490

== ENCOUNTER 2019-10-27 07:57 | Emergency (ER) | payer MEDICARE, MEDICAID ==
--- NOTE | 2019-10-27 09:10 | RADIOLOGY REPORT (SQ) ---
EXAM DESCRIPTION: KNEE LEFT 4 VIEW COMPLETED DATE/TIME: 10/27/2019 8:59 am REASON FOR STUDY: unable to bear weight, tender to palpation COMPARISON: None. NUMBER OF VIEWS: Four views. TECHNIQUE: AP, lateral, and both oblique radiographic images acquired of the left knee. LIMITATIONS: None. FINDINGS: MINERALIZATION: Normal. BONES: No acute fracture or dislocation. No worrisome bone lesions. JOINT: Small joint effusion. SOFT TISSUES: 8 mm metallic density overlies anterior proximal tibia. Vascular calcifications. OTHER: No other significant finding. IMPRESSION: 1. 8 mm metallic density overlies anterior proximal tibia compatible foreign body. Rec ommend correlation with patient history. 2. Small joint effusion without other evidence of acute bony abnormality of the left knee. TECHNICAL DOCUMENTATION: JOB ID: [id number] [employer]- All Rights Reserved Reading location - IP/workstation name: [email or web address]
[2019-10-27 12:35] LABS: ABSOLUTE EOSINOPHILS # (AUTO) 0.1 10^3/uL (0.0-0.6); ABSOLUTE LYMPHOCYTES (AUTO) 1.4 10^3/uL (0.5-4.7); ABSOLUTE MONOCYTES (AUTO) 0.3 10^3/uL (0.1-1.4); ABSOLUTE NEUT (AUTO) 2.7 10^3/uL (1.7-8.2); BASOPHILS % (AUTO) 0.8 % (0-2); EOSINOPHILS % (AUTO) 1.8 % (0-6); HEMATOCRIT 37.1 % (37.9-51.0); HEMOGLOBIN 11.3 g/dL (13.5-17.0); LYMPHOCYTES % (AUTO) 31.3 % (13-45); MEAN CORPUSCULAR HEMOGLOBIN 28.7 pg (27.0-33.4); MEAN CORPUSCULAR HGB CONC 30.4 g/dL (32.0-36.0); MEAN CORPUSCULAR VOLUME 95 fl (80-97); MONOCYTES % (AUTO) 6.1 % (3-13); PLATELET COUNT 163 10^3/uL (150-450); RED BLOOD COUNT 3.92 10^6/uL (4.35-5.55); RED CELL DISTRIBUTION WIDTH 15.7 % (11.5-14.0); TOTAL CELLS COUNTED % (AUTO) 100 %; WHITE BLOOD COUNT 4.5 10^3/uL (4.0-10.5)
[2019-10-27 12:56] LABS: ALBUMIN 3.8 g/dL (3.5-5.0); ALKALINE PHOSPHATASE 97 U/L (38-126); ANION GAP 15 (5-19); ASPARTATE AMINO TRANSFERASE 14 U/L (17-59); BILIRUBIN,DIRECT 0.3 mg/dL (0.0-0.4); BILIRUBIN,TOTAL 0.7 mg/dL (0.2-1.3); BLOOD UREA NITROGEN 45 mg/dL (7-20); CALCIUM 8.1 mg/dL (8.4-10.2); CARBON DIOXIDE 22 mmol/L (22-30); CHLORIDE 104 mmol/L (98-107); CREATINE KINASE 53 U/L (55-170); GLUCOSE 77 mg/dL (75-110); POTASSIUM 5.3 mmol/L (3.6-5.0); TOTAL PROTEIN 6.8 g/dL (6.3-8.2); URIC ACID 6.6 mg/dL (3.5-8.5)
[2019-10-27 13:06] LABS: TROPONIN I 0.014 ng/mL
--- NOTE | 2019-10-27 13:59 | ER Document Report ---
Entered by VALE SUAZO SCRIBE 10/27/19 1104 Acting as scribe for:DAVEY CESAR MD ED Extremity Problem, Lower - General Chief Complaint: Knee Pain Stated Complaint: FALL/KNEE PAIN Time Seen by Provider: 10/27/19 11:02 Primary Care Provider: [facility] [Provider Group] - Follow up as needed JOSE BARAJAS MD [Primary Care Provider] - Follow up as needed EDA BIGGS JR, DO [ACTIVE PROVISIONAL STAFF] - Follow up as needed Mode of Arrival: Medic Information source: Patient, [facility] Records Notes: This 54 year old male patient brought in by EMS presents to the ED today with complaints of left knee pain that occurred x2 days ago when he slipped on a wet floor and fell on his left knee at home. Patient reports that the pain is exacerbated by moving and relieved by resting. Patient states that he is on 2L o f O2 at home with trach collar. Patient reports that he has dialysis for ESRD MWF, but was dialyzed on Thursday due to the holiday. Patient will return to dialysis tomorrow and be on his regular schedule next week. TRAVEL OUTSIDE OF THE [place] IN LAST 30 DAYS: No - Related Data Allergies/Adverse Reactions: No Known Allergies Allergy (Verified 10/27/19 08:26) Past Medical History - General Information source: Patient - Social History Smoking Status: Never Smoker Cigarette use (# per day): No Chew tobacco use (# tins/day): No Smoking Education Provided: No Frequency of alcohol use: None Drug Abuse: None Lives with: Family Family History: Reviewed & Not Pertinent Patient has suicidal ideation: No Patient has homicidal ideation: No - Past Medical History Cardiac Medical History: Reports: Hx Congestive Heart Failure, Hx Hypercholesterolemia, Hx Hypertension Pulmonary Medical History: Reports: Hx Asthma, Hx Bronchitis, Hx Sleep Apnea - Obstructive Sleep Apnea Endocrine Medical History: Reports: Hx Diabetes Mellitus Type 2 Renal/ Medical History: Reports: Hx End Stage Renal Disease GI Medical History: Reports: Hx Gastroesophageal Reflux Disease Past Surgical History: Reports: Hx Pacemaker, Other - Tracheostomy x30 years ago - Immunizations Hx Diphtheria, Pertussis, Tetanus Vaccination: No - UNK Hx Pneumococcal Vaccination: 05/03/14 Review of Systems - Review of Systems Constitutional: No symptoms reported EENT: No symptoms reported Cardiovascular: No symptoms reported Respiratory: No symptoms reported Gastrointestinal: No symptoms reported Genitourinary: No symptoms reported Male Genitourinary: No symptoms reported Musculoskeletal: See HPI, Other - Left knee pain Skin: No symptoms reported Hematologic/Lymphatic: No symptoms reported Neurological/Psychological: No symptoms reported -: Yes All other systems reviewed and negative Physical Exam - Vital signs Vitals: Temp Pulse Resp BP Pulse Ox 98.3 F 74 20 99/65 L 100 10/27/19 08:00 10/27/19 08:00 10/27/19 08:00 10/27/19 08:00 10/27/19 08:00 Interpretation: Normal - General General appearance: Appears well, Alert - HEENT Head: Normocephalic, Atraumatic Eyes: Normal Pupils: PERRL - Respiratory Respiratory status: No respiratory distress Chest status: Nontender Breath sounds: Normal Chest palpation: Normal - Cardiovascular Rhythm: Regular Heart sounds: Normal auscultation Murmur: No - Abdominal Inspection: Normal Distension: No distension Bowel sounds: Normal Tenderness: Nontender Organomegaly: No organomegaly - Back Back: Normal, Nontender - Extremities General upper extremity: Normal inspection General lower extremity: Other - Left knee is exquisitely tender with swelling over the medial collateral ligament. There is considerable increase in discom fort with attempts to valgus stress to the joint. There is no tenderness over the patella, anterior knee, or lateral collateral ligament region. He is most comfortable laying with his thigh and external rotation and the knee slightly flexed. - Neurological Neuro grossly intact: Yes - Psychological Associated symptoms: Normal affect, Normal mood - Skin Skin Temperature: Warm Skin Moisture: Dry Skin Color: Normal Course - Re-evaluation Re-evalutation: 10/27/19 14:59 The knee immobilizer was placed on the left knee by the PCT. Patient states that makes the knee feel much better, and he does not need pain medication at this time. I advised him that it would probably be best just to take ibuprofen for the pain, since he is in complete renal failure makes no urine, he cannot cause harm with ibuprofen. - Vital Signs Vital signs: Temp Pulse Resp BP Pulse Ox 98.3 F 74 20 132/80 H 100 10/27/19 08:00 10/27/19 08:00 10/27/19 08:00 10/27/19 10:16 10/27/19 08:00 - Laboratory Result Diagrams: 10/27/19 12:20 10/27/19 12:20 Laboratory results interpreted by me: 10/27/19 10/27/19 10/27/19 12:20 12:20 12:20 RBC 3.92 L Hgb 11.3 L Hct 37.1 L MCHC 30.4 L RDW 15.7 H Potassium 5.3 H BUN 45 H Creatinine 9.63 H Est GFR ( Amer) 7 L Est GFR (MDRD) Non-Af 6 L Calcium 8.1 L AST 14 L Creatine Kinase 53 L NT-Pro-B Natriuret Pep 3230 H - Diagnostic Test Radiology reviewed: Image reviewed, Reports reviewed - Left knee x-ray shows 8 mm foreign body seen in the anterior proximal tibia region. There is a small joint effusion. Chest x-ray shows cardiomegaly, subsegmental atelectasis in the left lung base, questionable mild pulmonary vascular congestion. - EKG Interpretation by Me EKG shows normal: Sinus rhythm, Allen, Intervals, QRS Complexes, ST-T Waves Rate: Normal - 79 Allen/QRS: Left axis deviation P Waves: LAE Heart block present: 1st Degree When compared to previous EKG there are: No significant change Discharge - Discharge Clinical Impression: Obstructive sleep apnea Medial collateral ligament sprain of knee Qualifiers: Encounter type: initial encounter Laterality: left Qualified Code(s): S83.412A - Sprain of medial collateral ligament of left knee, initial encounter Fall Qualifiers: Encounter type: initial encounter Qualified Code(s): W19.XXXA - Unspecified fall, initial encounter Chronic renal failure Qualifiers: Chronic kidney disease stage: stage 5 Qualified Code(s): N18.5 - Chronic kidney disease, stage 5 Condition: Stable Disposition: HOME, SELF-CARE Additional Instructions: Sprained Knee Your sprained knee results from a stretching or tearing of the ligaments which support the joint. This often results from a bending stress -- such as a twisting fall while skiing or a "clip" while playing football. The ligaments will require time and protection to heal adequately. A knee sprain can be quite serious, and should be taken seriously. The usual treatment is splinting of the knee, ice packs, and elevation. You shouldn't walk on the leg if weightbearing is painful. Unless the sprain is obviously a minor one, follow-up exam is very important. The degree of ligament damage often cannot be fully assessed at first due to muscle spasm and pain. Your treatment plan may change based on the physician's findings during your follow-up examination. Call the doctor at once if there is severe swelling, increasing pain, numbness, or other alarming symptoms. Your exam shows injury to the left knee medial collateral ligament. Use the knee immobilizer all the time to prevent movement at the knee. Use ice packs on the inside aspect of your knee off and on for the next few days. Take ibuprofen 600 mg every 8 hours for the inflammation and pain. Follow-up with a local orthopedic surgeon next week for recheck, or with your primary care provider Dr. Barajas. RETURN TO THE EMERGENCY ROOM IF ANY NEW OR WORSENING SYMPTOMS. Referrals: JOSE BARAJAS MD [Primary Care Provider] - Follow up as needed EDA BIGGS JR, DO [ACTIVE PROVISIONAL STAFF] - Follow up as needed [facility] [Provider Group] - Follow up as needed Scribe Attestation: 10/27/19 11:31 I personally performed the services described in the documentation, reviewed and edited the documentation which was dictated to the scribe in my presence, and it accurately records my words and actions. I personally performed the services described in the documentation, reviewed and edited the documentation which was dictated to the scribe in my presence, and it accurately records my words and actions.
[2019-10-27 15:00] VITALS: BP 129/72
--- NOTE | 2019-10-27 16:26 | EKG REPORT ---
SEVERITY:- ABNORMAL ECG - SINUS RHYTHM FIRST DEGREE AV BLOCK PROBABLE LEFT ATRIAL ABNORMALITY BORDERLINE LEFT AXIS DEVIATION : Confirmed by: Joi Jesus MD 27-Oct-2019 16:25:25
== END 2019-10-27 15:12 | disposition home or self-care (01) ==
LOC: ER 07:57
DX: S83.412A Sprain of medial collateral ligament of left knee, initial encounter (principal); G47.33 Obstructive sleep apnea (adult) (pediatric); N18.5 Chronic kidney disease, stage 5; E11.22 Type 2 diabetes mellitus with diabetic chronic kidney disease; I13.2 Hypertensive heart and chronic kidney disease with heart failure and with stage 5 chronic kidney disease, or end stage renal disease; W01.0XXA Fall on same level from slipping, tripping and stumbling without subsequent striking against object, initial encounter; Z99.81 Dependence on supplemental oxygen; Z99.2 Dependence on renal dialysis; Z95.0 Presence of cardiac pacemaker; Z93.0 Tracheostomy status
CPT/HCPCS: 93005; 99284; 36415; 82550; 83735; 84550; 85025; 80053; 84484; 83880; 73564; 93010; L1830

== ENCOUNTER 2019-10-28 07:48 | Emergency (ER) | payer MEDICARE, MEDICAID ==
--- NOTE | 2019-10-28 10:12 | ER Document Report ---
ED Medical Screen (RME) - General Chief Complaint: Abnormal Lab Results Stated Complaint: POSSIBLE DIALYSIS Primary Care Provider: JOSE BARAJAS MD [Primary Care Provider] - Follow up as needed Mode of Arrival: Wheelchair Information source: Patient Notes: 54-year-old male patient presents the emergency department because he missed dialysis this morning. Patient reports he was here in the emergency department yesterday with a left knee injury which is what caused him to miss his dialysis appointment. Patient denies any acute complaints. I have greeted and performed a rapid initial assessment of this patient. A comprehensive ED assessment and evaluation of the patient, analysis of test results and completion of the medical decision making process will be conducted by additional ED providers. I have specifically instructed the patient or family members with the patient to immediately return to any nursing staff should anything change in the patient's condition or with their chief complaint. TRAVEL OUTSIDE OF THE [place] IN LAST 30 DAYS: No - Related Data Allergies/Adverse Reactions: No Known Allergies Allergy (Verified 10/27/19 08:26) Past Medical History - Social History Frequency of alcohol use: None Drug Abuse: None - Past Medical History Cardiac Medical History: Reports: Hx Congestive Heart Failure, Hx Hypercholesterolemia, Hx Hypertension Denies: Hx Coronary Artery Disease, Hx Heart Attack Pulmonary Medical History: Reports: Hx Asthma, Hx Bronchitis, Hx Sleep Apnea - Obstructive Sleep Apnea Denies: Hx COPD, Hx Pneumonia, Hx Tuberculosis Neurological Medical History: Denies: Hx Cerebrovascular Accident, Hx Seizures Endocrine Medical History: Reports: Hx Diabetes Mellitus Type 2 Renal/ Medical History: Reports: Hx End Stage Renal Disease. Denies: Hx Peritoneal Dialysis GI Medical History: Reports: Hx Gastroesophageal Reflux Disease Musculoskeltal Medical History: Denies Hx Arthritis Past Surgical History: Reports: Hx Cardiac Surgery - pacemaker, Hx Pacemaker, Other - Tracheostomy x30 years ago - Immunizations Hx Diphtheria, Pertussis, Tetanus Vaccination: No - UNK Physical Exam - Vital signs Vitals: Temp Pulse Resp BP Pulse Ox 98.0 F 76 20 145/80 H 93 10/28/19 08:13 10/28/19 08:13 10/28/19 08:13 10/28/19 08:13 10/28/19 08:13 Course - Vital Signs Vital signs: Temp Pulse Resp BP Pulse Ox 98.0 F 76 20 145/80 H 93 10/28/19 08:13 10/28/19 08:13 10/28/19 08:13 10/28/19 08:13 10/28/19 08:13 Doctor's Discharge - Discharge Referrals: JOSE BARAJAS MD [Primary Care Provider] - Follow up as needed
--- NOTE | 2019-10-28 10:41 | RADIOLOGY REPORT (SQ) ---
EXAM DESCRIPTION: CHEST SINGLE VIEW COMPLETED DATE/TIME: 10/28/2019 10:28 am REASON FOR STUDY: eval for fluid overload, dialysis pt COMPARISON: Chest films 10/13/2019, 10/17/2019 EXAM PARAMETERS: NUMBER OF VIEWS: One view. TECHNIQUE: Single frontal radiographic view of the chest acquired. RADIATION DOSE: NA LIMITATIONS: Morbidly obese patient, AP portable chest film FINDINGS: LUNGS AND PLEURA: Pulmonary vascular congestion is present. Interstitial edema may be pre sent, fine detail of this film is limited due to technique. No gross pleural effusion or pneumothorax. MEDIASTINUM AND HILAR STRUCTURES: No masses. Contour normal. HEART AND VASCULAR STRUCTURES: No cardiomegaly BONES: No acute findings. HARDWARE: Left-sided subclavian vein stents are unchanged Tracheostomy tube tip in the upper trachea. OTHER: No other significant finding. IMPRESSION: Pulmonary vascular prominence. TECHNICAL DOCUMENTATION: JOB ID: [id number] [employer]- All Rights Reserved Reading location - IP/workstation name: [email or web address]
[2019-10-28 12:41] LABS: ABSOLUTE BASOPHILS # (AUTO) 0.1 10^3/uL (0.0-0.2); ABSOLUTE EOSINOPHILS # (AUTO) 0.1 10^3/uL (0.0-0.6); ABSOLUTE LYMPHOCYTES (AUTO) 1.4 10^3/uL (0.5-4.7); ABSOLUTE MONOCYTES (AUTO) 0.2 10^3/uL (0.1-1.4); ABSOLUTE NEUT (AUTO) 2.4 10^3/uL (1.7-8.2); BASOPHILS % (AUTO) 1.4 % (0-2); EOSINOPHILS % (AUTO) 1.7 % (0-6); HEMOGLOBIN 11.7 g/dL (13.5-17.0); LYMPHOCYTES % (AUTO) 33.7 % (13-45); MEAN CORPUSCULAR HEMOGLOBIN 28.7 pg (27.0-33.4); MEAN CORPUSCULAR HGB CONC 30.8 g/dL (32.0-36.0); MEAN CORPUSCULAR VOLUME 93 fl (80-97); MONOCYTES % (AUTO) 5.2 % (3-13); PLATELET COUNT 146 10^3/uL (150-450); RED BLOOD COUNT 4.08 10^6/uL (4.35-5.55); RED CELL DISTRIBUTION WIDTH 15.7 % (11.5-14.0); TOTAL CELLS COUNTED % (AUTO) 100 %; WHITE BLOOD COUNT 4.1 10^3/uL (4.0-10.5)
[2019-10-28 12:55] LABS: ALBUMIN 3.9 g/dL (3.5-5.0); ALKALINE PHOSPHATASE 111 U/L (38-126); ANION GAP 19 (5-19); ASPARTATE AMINO TRANSFERASE 12 U/L (17-59); BILIRUBIN,DIRECT 0.4 mg/dL (0.0-0.4); BILIRUBIN,TOTAL 0.6 mg/dL (0.2-1.3); BLOOD UREA NITROGEN 58 mg/dL (7-20); CALCIUM 8.5 mg/dL (8.4-10.2); CARBON DIOXIDE 24 mmol/L (22-30); CHLORIDE 98 mmol/L (98-107); GLUCOSE 71 mg/dL (75-110); POTASSIUM 5.1 mmol/L (3.6-5.0)
[2019-10-28 13:04] LABS: TROPONIN I 0.015 ng/mL
[2019-10-28] MEDS ORDERED: NORMAL SALINE 1000 ML 1,000 ML IV PRN (13:32)
--- NOTE | 2019-10-28 13:32 | ER Document Report ---
ED General - General Chief Complaint: Abnormal Lab Results Stated Complaint: POSSIBLE DIALYSIS Time Seen by Provider: 10/28/19 10:13 Primary Care Provider: JOSE BARAJAS MD [Primary Care Provider] - Follow up in 3-5 days Mode of Arrival: Wheelchair Notes: 54-year-old male with history of end-stage renal disease on dialysis Thursday presents to ER for possible dialysis. Patient missed his appointment with his dialysis center this morning at 8:00 and was told by dialys is center to come to ER for dialysis. Patient denies any complaints at this time. Patient denies any chest pain, dyspnea, abdominal pain, swelling. TRAVEL OUTSIDE OF THE [place] IN LAST 30 DAYS: No - Related Data Allergies/Adverse Reactions: No Known Allergies Allergy (Verified 10/27/19 08:26) Past Medical History - General Information source: Patient - Social History Smoking Status: Unknown if Ever Smoked Frequency of alcohol use: None Drug Abuse: None Family History: Reviewed & Not Pertinent Patient has suicidal ideation: No Patient has homicidal ideation: No - Past Medical History Cardiac Medical History: Reports: Hx Congestive Heart Failure, Hx Hyp ercholesterolemia, Hx Hypertension Denies: Hx Coronary Artery Disease, Hx Heart Attack Pulmonary Medical History: Reports: Hx Asthma, Hx Bronchitis, Hx Sleep Apnea - Obstructive Sleep Apnea Denies: Hx COPD, Hx Pneumonia, Hx Tuberculosis Neurological Medical History: Denies: Hx Cerebrovascular Accident, Hx Seizures Endocrine Medical History: Reports: Hx Diabetes Mellitus Type 2 Renal/ Medical History: Reports: Hx End Stage Renal Disease. Denies: Hx Peritoneal Dialysis GI Medical History: Reports: Hx Gastroesophageal Reflux Disease Musculoskeletal Medical History: Denies Hx Arthritis Past Surgical History: Reports: Hx Cardiac Surgery - pacemaker, Hx Pacemaker, Other - Tracheostomy x30 years ago - Immunizations Hx Diphtheria, Pertussis, Tetanus Vaccination: No - UNK Hx Pneumococcal Vaccination: 05/03/14 Review of Systems - Review of Systems Notes: Constitutional: Negative for fever. HENT: Negative for sore throat. Eyes: Negative for visual changes. Cardiovascular: Negative for chest pain. Respiratory: Negative for shortness of breath. Gastrointestinal: Negative for abdominal pain, vomiting or diarrhea. Genitourinary: Negative for dysuria. Musculoskeletal: Negative for back pain. Skin: Negative for rash. Neurological: Negative for headaches, weakness or numbness. 10 point ROS negative except as marked above and in HPI. Physical Exam - Vital signs Vitals: Temp Pulse Resp BP Pulse Ox 98.0 F 76 20 145/80 H 93 10/28/19 08:13 10/28/19 08:13 10/28/19 08:13 10/28/19 08:13 10/28/19 08:13 - Notes Notes: GENERAL: Well-appearing, well-nourished and in no acute distress. HEAD: Atraumatic, normocephalic. EYES: Extraocular movements intact, sclera anicteric, conjunctiva are normal. ENT: TMs normal, nares patent, oropharynx clear without exudates. Moist mucous membranes. NECK: Normal range of motion, supple without lymphadenopathy or JVD. Trach. LUNGS: Breath sounds clear to auscultation bilaterally and equal. No wheezes rales or rhonchi. HEART: Regular rate and rhythm without murmurs, rubs or gallops. EXTREMITIES: Normal range of motion, no pitting or edema. No clubbing or cyanosis. NEUROLOGICAL: Cranial nerves II through XII grossly intact. Normal speech, normal gait. PSYCH: Normal mood, normal affect. SKIN: Warm, Dry, normal turgor, no rashes or lesions noted. Course - Re-evaluation Re-evalutation: 10/28/19 54-year-old male with history of end-stage renal disease on dialysis Thursday presents for possible dialysis after missing his [facility] appointment this morning. Patient has no complaints at this time. CBC and CMP were ordered. 10/28/19 13:28 Paged out to senior payroll specialist. 10/28/19 13:[address] Montero, senior payroll specialist, who said that they are ready for him for dialysis. Patient to receive dialysis and then be discharged home. Return precautions given. Close follow-up with PCP given. All questions/concerns addressed prior to discharge. 10/28/19 14:35 Dr. Montero called. Concerned that pt is saying he cannot ambulate. States may need social work consult or walker/crutches. 10/28/19 18:26 reviewed records from yesterday. Patient has a knee sprain and that is why he is unable to ambulate. Patient written for walker to help facilitate ambulation. - Vital Signs Vital signs: Temp Pulse Resp BP Pulse Ox 97.8 F 76 23 H 150/76 H 99 10/28/19 13:33 10/28/19 08:13 10/28/19 13:33 10/28/19 13:33 10/28/19 13:33 - Laboratory Result Diagrams: 10/28/19 12:23 10/28/19 12:23 Laboratory results interpreted by me: 10/28/19 10/28/19 10/28/19 12:23 12:23 12:23 RBC 4.08 L Hgb 11.7 L MCHC 30.8 L RDW 15.7 H Plt Count 146 L Potassium 5.1 H BUN 58 H Creatinine 12.07 H Est GFR ( Amer) 5 L Est GFR (MDRD) Non-Af 4 L Glucose 71 L AST 12 L NT-Pro-B Natriuret Pep 3880 H Discharge - Discharge Clinical Impression: Hyperkalemia Condition: Stable Disposition: HOME, SELF-CARE Additional Instructions: You will be dialyzed today. Please follow-up with your dialysis center as scheduled. Please follow-up with your primary care doctor in 3 to 5 days. Return to ER for any worsening symptoms including shortness of breath, chest pain, fever, abdominal pain, or any other symptoms that are concerning to you. Prescriptions: Walker [Folding Walker] 1 each MC ASDIR PRN #1 each PRN Reason: Referrals: JOSE BARAJAS MD [Primary Care Provider] - Follow up in 3-5 days
[2019-10-28] MEDS ORDERED: HEPARIN SOD (PORCINE) 1,000 UNIT/ML 10 ML VIAL IV PRN (14:53)
--- NOTE | 2019-10-28 14:56 | PDOC CONSULTATION ---
Consultation Consult Date: 10/28/19 Provider Consulted: TAM MEYER Consult reason:: I was asked to see the patient for hemodialysis in a patient who has ESRD and missed his dialysis treatment. History of Present Illness Admission Date/PCP: JOSE BARAJAS MD History of Present Illness: NUNO JAMES is a 54 year old male known to me with history of ESRD on hemodialysis on MWF, hypertension, CHF, diabetes mellitus type 2, morbid obesity with chronic tracheostomy who was brought to the emergency room via EMS because he was unable to ambulate or even stand up and he could not go to [facility] dialysis unit to have his dialysis treatment. Apparently about 3 days ago he slipped on a wet floor and injured his left knee. He was here yesterday and x- ray was done. Assessment was that the patient could have had a left MCL sprain. He was given a knee brace and was discharged home. Due to inability to get up and ambulate to go to [facility] for his dialysis today, he ended up missing di alysis so I was called to provide dialysis treatment today. I am seeing him currently on dialysis treatment. He is stable and really has no complaints. He said his knee does not hurt if is not moving but it hurts when he moves. He states that he cannot even stand up. So far he is tolerating ruby lysis. He has a tendency to have a lot of clotting so we are to give him heparin infusion during dialysis. Past Medical History Cardiac Medical History: Reports: CHF-Systolic, Hyperlipidemia, Hypertension- primary Pulmonary Medical History: Reports: Asthma, Bronchitis, Sleep Apnea - Obstructive Sleep Apnea, Other - With chronic tracheostomy Neurological Medical History: Denies: Seizures Endocrine Medical History: Reports: Diabetes Mellitus Type 2, Obesity Renal/ Medical History: Reports: End Stage Renal Disease, Hyperphosphatemia, Renal Osteodystropy, Secondary Hyperparathyroidism GI Medical History: Reports: Gastroesophageal Reflux Disease Hematology Medical History: Reports Anemia of Chronic Kidney Disease Past Surgical History Past Surgical History: Reports: Pacemaker, Other - Tracheostomy x30 years ago Social History Information Source: Patient Smoking Status: Never Smoker Electronic Cigarette use?: No Frequency of Alcohol Use: None Hx Recreational Drug Use: No Hx Prescription Drug Abuse: No Family History Family History: Chronic Kidney Disease Parental Family History Reviewed: Yes Children Family History Reviewed: Yes Sibling(s) Family History Reviewed.: Yes Medication/Allergy Home Medications: Acetaminophen [Tylenol Arthritis] 650 mg PO Q4HP PRN 10/12/19 Bisacodyl [Dulcolax 10 mg Supp.rect] 10 mg OH DAILYP PRN 10/12/19 Calcitriol [Rocaltrol 0.5 mcg Capsule] 0.5 mcg PO DAILY 10/12/19 Calcium Acetate [Phoslo 667 mg Capsule] 2,668 mg PO MEALS 10/12/19 Calcium Acetate [Phoslo 667 mg Capsule] 667 mg PO .WITH SNACKS PRN 10/12/19 Calcium Carbonate [Tums Chewable 500 mg Tab.chew] 1,000 mg PO QHS 10/12/19 Ferric Citrate [Auryxia] 210 mg PO .WITH SNACKS PRN 10/12/19 Ferric Citrate [Auryxia] 630 mg PO MEALS 10/12/19 Ipratropium/Albuterol Sulfate [Duoneb 3 ml Ampul] 3 ml NEB RTQ4HP PRN 10/12/19 Lactulose [Cephulac Syrup 20 gm/30 ml Udcup] 20 gm PO DAILYP PRN 10/12/19 Magnesium Oxide [Mag-Ox 400 mg Tablet] 400 mg PO BID 10/12/19 Midodrine HCl 2.5 mg PO .PRIOR TO DIALYSIS 10/12/19 Ranitidine HCl [Zantac] 150 mg PO BID 10/12/19 Sevelamer Carbonate [Renvela] 2,400 mg PO MEALS 10/12/19 Sevelamer Carbonate [Renvela] 800 mg PO .WITH SNACKS PRN 10/12/19 Allergies/Adverse Reactions: No Known Allergies Allergy (Verified 10/27/19 08:26) Review of Systems All systems: reviewed and no additional remarkable complaints except as stated Review of Systems: Constitutional: ABSENT: chills, fatigue, fever(s), headache(s), weight gain, weight loss Eyes: ABSENT: visual disturbances Ears: ABSENT: hearing changes Cardiovascular: ABSENT: chest pain, dyspnea on exertion, orthropnea, palpitations; mild edema Respiratory: ABSENT: cough, dyspnea, hemoptysis Gastrointestinal: ABSENT: abdominal pain, constipation, diarrhea, hematemesis, hematochezia, nausea, vomiting Genitourinary: ABSENT: dysuria, hematuria Musculoskeletal: ABSENT: joint swelling; left knee pain on exertion and movement Integumentary: ABSENT: rash, wounds Neurological: ABSENT: abnormal gait, abnormal speech, confusion, dizziness, focal weakness, numbness, syncope Psychiatric: ABSENT: anxiety, depression Endocrine: ABSENT: cold intolerance, heat intolerance, polydipsia, polyuria Hematologic/Lymphatic: ABSENT: easy bleeding, easy bruising, lymphadenopathy Physical Exam Vital Signs: Temp Pulse Resp BP Pulse Ox 97.8 F 76 23 H 150/76 H 99 10/28/19 13:33 10/28/19 08:13 10/28/19 13:33 10/28/19 13:33 10/28/19 13:33 Intake & Output 10/27/19 10/28/19 10/29/19 06:59 06:59 06:59 Weight 163 kg Vitals during dialysis: 156/90, heart rate of 66, blood flow rate of 400 mL/min, dialysis flow rate of 800 mL/min. and dialysate flow rate of 800 mL/min. Exam: General appearance: No acute distress, cooperative, obese Head exam: PRESENT: atraumatic, normocephalic Eye exam: PRESENT: Conjunctiva [place], EOMI, PERRLA. ABSENT: conjunctival injection, scleral icterus Mouth exam: PRESENT: moist, neck supple, tongue midline Neck exam: PRESENT: full ROM. Trach in place ABSENT: carotid bruit, JVD, lymp hadenopathy, thyromegaly Respiratory exam: PRESENT: clear to auscultation bilaterally. ABSENT: rales, rhonchi, stridor, wheezes Cardiovascular exam: PRESENT: RRR, +S1, +S2. ABSENT: systolic murmur Pulses: PRESENT: normal radial pulses, normal dorsalis pedis pulses GI/Abdominal exam: PRESENT: normal bowel sounds, soft. ABSENT: guarding, mass, tenderness Rectal exam: Deferred Extremities exam: PRESENT: full ROM. Wearing left knee brace. Mild trace bilateral pitting edema ABSENT: calf tenderness Musculoskeletal: PRESENT: full ROM. ABSENT: deformity Neurological exam: PRESENT: alert, Awake, Oriented to person, Oriented to place, Oriented to time, reflexes normal, CN II-XII grossly intact. ABSENT: motor sensory deficit Psychiatric exam: PRESENT: appropriate affect, normal mood. ABSENT: homicidal ideation, suicidal ideation Skin exam: PRESENT: intact, dry, warm. ABSENT: rash Results Laboratory Results: 10/28/19 12:23 10/28/19 12:23 10/28/19 10/28/19 12:23 12:23 WBC 4.1 RBC 4.08 L Hgb 11.7 L Hct 38.0 MCV 93 MCH 28.7 MCHC 30.8 L RDW 15.7 H Plt Count 146 L Seg Neutrophils % 58.0 Sodium 141.3 Potassium 5.1 H Chloride 98 Carbon Dioxide 24 Anion Gap 19 BUN 58 H Creatinine 12.07 H Est GFR ( Amer) 5 L Glucose 71 L Calcium 8.5 Total Bilirubin 0.6 AST 12 L Alkaline Phosphatase 111 Total Protein 7.0 Albumin 3.9 10/28/19 12:23 Troponin I 0.015 NT-Pro-B Natriuret Pep 3880 H Impressions: Chest X-Ray 10/28/19 10:10 IMPRESSION: Pulmonary vascular prominence. Assessment & Plan - Diagnosis (1) End stage renal disease Is this a current diagnosis for this admission?: Yes Plan: We will do dialysis today for 3 hours, using the patient's AV fistula, with 2 potassium bath, blood flow rate of 400-450 mL per minute, dialysate flow rate of 800 mL per minute, ultrafiltration 3 to 4 L as tolerated, heparin infusion of 1000 units an hour and no Procrit. Patient will be monitored throughout dialysis treatment. We will adjust ultrafiltration according to patient's blood pressure. (2) Left knee injury Is this a current diagnosis for this admission?: Yes Plan: Possibly with MCL sprain. I discussed the case with VINOD Naranjo. You might need to have the town planner involved or at least try to have the patient stand up with some assistive device either crutches or a walker so he can ambulate a little bit prior to discharge. Advised if the patient is unable to move or at least stand up or ambulate with assistive device then patient may not be able to go to dialysis because he rides a cab going to and from dialysis and home. Advised her to have town planner involved to see how we can help the patient. (3) Hypertension Is this a current diagnosis for this admission?: Yes - Notes Notes: Thank you very much for this consultation. I think town planner should be involved to figure out how to help the patient in terms of ambulation so he can go to his dialysis at [facility] as an outpatient otherwise other options should be considered. Discussed with Karissa Weiner PA-C. - Time Time Spent: 50 to 70 Minutes
--- NOTE | 2019-10-28 19:30 | EKG REPORT ---
SEVERITY:- ABNORMAL ECG - SINUS RHYTHM FIRST DEGREE AV BLOCK : Confirmed by: Joi Jesus MD 28-Oct-2019 19:28:54
[2019-10-28 21:44] VITALS: BP 132/67
== END 2019-10-28 21:47 | disposition home or self-care (01) ==
LOC: ER 07:48
DX: I12.0 Hypertensive chronic kidney disease with stage 5 chronic kidney disease or end stage renal disease (principal); E11.22 Type 2 diabetes mellitus with diabetic chronic kidney disease; N18.6 End stage renal disease; Z99.2 Dependence on renal dialysis; Z91.15 Patient's noncompliance with renal dialysis; J45.909 Unspecified asthma, uncomplicated; Z79.899 Other long term (current) drug therapy
CPT/HCPCS: 93005; 99285; 36415; 85025; 80053; 84484; 83880; 71045; 93010; J1644; G0257